=== PATIENT | male | born 1985 | race Caucasian/White ===

== ENCOUNTER 2016-04-27 10:15 | Emergency (ER) ==
[2016-04-27] MEDS ORDERED: NITROGLYCERIN SL PRN (10:21)
[2016-04-27] MEDS ORDERED: ASPIRIN PO STA (10:21)
[2016-04-27 10:37] LABS: MANUAL DIFF NEEDED? NO
[2016-04-27 10:49] LABS: BASO% 0.4 % (0.0-0.8); EOS# 0.09 X1000 (0.0-0.7); EOS% 1.7 % (0.0-10.0); HEMATOCRIT 50.5 % (42.0-52.0); HEMOGLOBIN 17.7 g/dL (14.0-18.0); LYMPH# 1.65 X1000 (1.2-3.4); LYMPH% 31.5 % (20.5-51.1); MCH 30.7 PG (27-31); MCV 87.5 FL (81-99); MONO# 0.42 X1000 (0.11-0.59); MPV 10.3 FL (7.4-10.4); NEUT% 58.4 % (42.2-75.2); PLT 273 X1000 (130-400); RBC 5.77 XMIL (4.7-6.1)
--- NOTE | 2016-04-27 10:53 | Diag Imaging Result Document ---
PROCEDURE NAME: CHEST-2 VIEWS - 04/27/2016 TWO VIEWS OF THE CHEST: FINDINGS: There is a granuloma in the right middle lobe. There is no evidence of acute cardiac or pulmonary disease. IMPRESSION: No evidence of acute disease.
[2016-04-27 10:57] LABS: INR 1.03; PROTIME 10.9 Seconds (9.2-11.7); PTT 25.7 Seconds (22.0-36.0)
--- NOTE | 2016-04-27 11:04 | PROVIDER DOCUMENTATION ---
HPI-Cardiac General - General Chief Complaint: Palpitations Stated Complaint: ELEVATED HEART RATE Time Seen by Provider: 04/27/16 10:51 Source: patient Allergies/Adverse Reactions: Patient Allergies Allergy/AdvReac Type Severity Reaction Status Date / Time No Known Allergies Allergy Verified 08/10/15 15:48 Home Medications: Home Medication List Medication Instructions Recorded Confirmed Last Taken Type Hydrocodone/APAP 7.5 mg/325 mg 1 each PO Q6H PRN PRN #12 tablet 08/10/15 Unknown Rx [[place]-7.5] Metoclopramide [Reglan] 10 mg PO Q6HR PRN #20 tablet 08/10/15 Unknown Rx Tamsulosin [Flomax] 0.4 mg PO DAILY #20 capsule 08/10/15 Unknown Rx - History of Present Illness-Cardiac Nature of Presenting Problem: Patient is a 31 y/o M that presents to the ER after having an episode of palpitations and chest discomfort with dizziness. patient reports seeing his heart rate going up to 122 bpm. Patient has been worried due to his dad having 3 vessel dz and CHF( due to agent orange). pt denies shortness of breath, fever/ chills. Location: reports: central Quality of Pain: reports: pressure Severity in ED: moderate Onset/Duration: abrupt, just prior to arrival Timing: improving Context/Activities at Onset: reports: recent emotional stress Modifying Factors: improves with: nothing Palpitation Quality: fast/pounding heart beat History of arrythmia: reports: none Recent use of:: reports: no stimulants Nitro Today/Relief: reports: no nitro taken today Aspirin Treatment Today: reports: 325 mg x 1, provided by ED Prior Chest Pain/Cardiac Workup: reports: non-cardiac Associated Symptoms: reports: dizziness. denies: heartburn, shortness of breath , swelling/lump in chest, vomiting Similar Symptoms Previously?: No Recently Seen Here or By Another Healthcare Provider: No Review of Systems - Adult - REVIEW OF SYSTEMS - ADULT Constitutional: denies: chills, fever Eyes: reports: no symptoms reported Ears, Nose, Mouth & Throat: reports: no symptoms reported Cardiovascular: reports: chest pain, palpitations. denies: syncope Respiratory: denies: cough, pleurisy, shortness of breath Gastrointestinal: denies: abdominal pain, diarrhea, nausea, vomiting Genitourinary: reports: no symptoms reported Musculoskeletal: reports: no symptoms reported Integumentary: reports: no symptoms reported Neurological: reports: dizziness/vertigo. denies: headache/migraines, numbness , syncope Psychiatric: reports: no symptoms reported Endocrine: reports: no symptoms reported Hematologic/Lymphatic: reports: no symptoms reported Allergic/Immunologic: reports: no symptoms reported All Other Systems: Reviewed and Negative Past History - Adult - PAST MEDICAL HISTORY-ADULT Review of Records: reports: Old Records Reviewed, Nursing Assessment Review, Medications Reviewed Cardiovascular: reports: hyperlipidemia Genitourinary: reports: kidney stones - PRIOR SURGERIES/PROCEDURES Surgical/Procedure History: reports: orthopedic (extremity) - IMMUNIZATION STATUS Childhood Immunizations: See Nurse Assessment Flu Vaccine: See Nurse Assessment - FAMILY HISTORY Family History: reviewed, not pertinent - SOCIAL HISTORY Smoking: non-smoker Alcohol Use Frequency: occasionally Living Situation: family Physical Exam-General - PHYSICAL EXAM-ADULT Initial Vital Signs Reviewed: Yes - CONSTITUTIONAL General Appearance: alert, anxious - EYES Eyes: PERRL/EOMI, pink conjunctivae - HEAD, EARS, NOSE, MOUTH & THROAT HENMT: normocephalic/atraumatic, moist mucous membranes, normal ENT inspection - NECK Neck: full range of motion, normal inspection. negative: lymphadenopathy - RESPIRATORY Respiratory: lungs clear, normal breath sounds, no respiratory distress, no accessory muscle use - CARDIOVASCULAR Cardiovascular: regular rate, rhythm, no edema, no murmur - GASTROINTESTINAL (ABDOMEN) Abdominal Exam: normal bowel sounds, non tender, soft - MUSCULOSKELETAL Extremity: normal range of motion, normal inspection, no pedal edema, normal capillary refill - SKIN Integumentary: normal color, warm/dry - NEUROLOGIC Neurologic: grossly normal, no motor/sensory deficits - PSYCHIATRIC Psych/Mental Status: normal thought process, oriented x 3, anxious Progress - PLAN OF CARE/RESULTS Progress/Plan/Lab Results: plan of care-cardiac work up Vital Signs Temp Pulse Resp BP Pulse Ox 04/27/16 11:16 84 21 164/87 97 04/27/16 10:18 97.8 F 99 H 20 160/86 100 No Known Allergies Allergy (Verified 08/10/15 15:48) Hydrocodone/APAP 7.5 mg/325 mg [[place]-7.5] 1 each PO Q6H PRN PRN #12 tablet Metoclopramide [Reglan] 10 mg PO Q6HR PRN #20 tablet 08/10/15 Tamsulosin [Flomax] 0.4 mg PO DAILY #20 capsule 08/10/15 Laboratory 04/27/16 04/27/16 04/27/16 10:27 10:27 10:27 WBC RBC Hgb Hct MCV MCH MCHC RDW Std Deviation Plt Count MPV Immature Gran % (Auto) Neut % (Auto) Lymph % (Auto) [place] % (Auto) Eos % (Auto) Baso % (Auto) Immature Gran # (Auto) Neut # (Auto) Lymph # (Auto) [place] # (Auto) Eos # (Auto) Baso # (Auto) PT 10.9 INR 1.03 PTT (Actin FS) 25.7 D-Dimer Sodium Potassium Chloride Carbon Dioxide Anion Gap BUN Creatinine Estimated GFR/1.73 m2 BUN/Creatinine Ratio Glucose Calculated Osmolality Calcium Magnesium Total Bilirubin AST ALT Alkaline Phosphatase Creatine Kinase Troponin T < 0.010 [id number] Pept 21 Total Protein Albumin Globulin Albumin/Globulin Ratio 04/27/16 04/27/16 04/27/16 10:27 10:27 10:27 WBC 5.23 RBC 5.77 Hgb 17.7 Hct 50.5 MCV 87.5 MCH 30.7 MCHC 35.0 RDW Std Deviation 12.6 Plt Count 273 MPV 10.3 Immature Gran % (Auto) 0.0 Neut % (Auto) 58.4 Lymph % (Auto) 31.5 [place] % (Auto) 8.0 Eos % (Auto) 1.7 Baso % (Auto) 0.4 Immature Gran # (Auto) 0.00 Neut # (Auto) 3.05 Lymph # (Auto) 1.65 [place] # (Auto) 0.42 Eos # (Auto) 0.09 Baso # (Auto) 0.02 PT INR PTT (Actin FS) D-Dimer 0.11 Sodium 140 Potassium 3.9 Chloride 100 Carbon Dioxide 25 Anion Gap 15 BUN 9 Creatinine 0.9 Estimated GFR/1.73 m2 > 60 BUN/Creatinine Ratio 10 Glucose 113 H Calculated Osmolality 279 Calcium 9.3 Magnesium 2.0 Total Bilirubin 0.72 AST 41 H ALT 80 H Alkaline Phosphatase 107 Creatine Kinase 113 Troponin T [id number]-[id number] Pept Total Protein 7.6 Albumin 4.6 Globulin 3.0 Albumin/Globulin Ratio 1.5 Orders Category Date Time Status Cardiac Monitoring DIRECTED Care 04/27/16 10:22 Active Saline Loc NOW Care 04/27/16 10:22 Active CHEST-2 VIEWS [RAD] Stat Exams 04/27/16 10:22 Draft CBC WITH ELECTRONIC DIFF [HEME] Stat Lab 04/27/16 10:27 Completed CK PROFILE [SP CHEM] Stat Lab 04/27/16 10:27 Completed COMPREHENSIVE METABOLIC PANEL [CHEM] Stat Lab 04/27/16 10:27 Completed D-DIMER [CHEM] Stat Lab 04/27/16 10:27 Completed MAGNESIUM [CHEM] Stat Lab 04/27/16 10:27 Completed PRO B-NATRIURETIC PEPTIDE Stat Lab 04/27/16 10:27 Completed PROTIME WITH INR [COAG] Stat Lab 04/27/16 10:27 Completed PTT [COAG] Stat Lab 04/27/16 10:27 Completed TROPONIN T Stat Lab 04/27/16 10:27 Completed Aspirin Med 04/27/16 10:21 Discontinued 325 mg PO STAT STA Nitroglycerin Sl [Nitroglycerin] Med 04/27/16 10:21 Discontinued 0.4 mg SL Q5M PRN PRN EKG [EKG] Stat Ther 04/27/16 10:22 Ordered pt will be d/c home f/u with for evaluation of heart and bp, pt was clinically stable. pt understood instructions/results - EKG 1 Time of EKG reading by physician:: 10:25 EKG Read and Signed by:: Cole Coleman EKG Interpretation (*Must complete 3 of following elements*): Normal Rate: 95 Rhythm: NSR [place]: normal QRS: normal NC Interval: normal ST Wave: normal - XRAY 1 XRAY Study: Chest Impression: Abnormal XRAY Interpretation: nad, right middle lobe granuloma Departure - Departure Time of Disposition Order: 12:04 DIAGNOSIS: Palpitations Disposition: HOME 01 Certified Medical Emergency: Emergent Condition: Stable Additional Instructions: ED Follow Up Instructions: You have been treated by a care provider in the Emergency Department. These instructions are being provided to you so you can have an understanding of how to care for yourself upon discharge. Upon discharge from the Emergency Department, you are responsible for making arrangements for follow-up care by a physician of your choice. Take all prescribed medications as directed. Return to the Emergency Department immediately for any new or worsening symptoms. You may call the Physician Referral phone number at [phone] to obtain a list of Physicians who are taking new patients. Referrals: Blake Todd MD [Primary Care Provider] - Call for Appoint. 1-2days Instructions: Palpitations, [id number] Attestation - Scribe Verification/Attestation Scribe:: Stan Cohen Acting as Scribe for:: Cole Coleman Scribe documention review:: This chart was documented by a scribe and accurately reflects the service the provider performed and the decisions made by the provider. Physician Attestation - Physician Attestation I, the provider, attest to the following statement:: Cole Coleman Physician documentation Attestation:: This documentation recorded by the scribe accurately reflects the service I personally performed and the decisions made by me.
[2016-04-27 11:13] LABS: AGAP 15; ALBUMIN 4.6 g/dL (3.5-5.0); ALKALINE PHOSPHATASE 107 U/L (32-122); BUN 9 mg/dL (8-22); CALCIUM 9.3 mg/dL (8.8-10.2); CHLORIDE 100 mmol/L (98-107); CK PROFILE 113 U/L (24-204); COSMO 279; GOT 41 U/L (10-34); GPT 80 U/L (10-44); POTASSIUM 3.9 mmol/L (3.5-5.1); SODIUM 140 mmol/L (136-145); TCO2 25 mmol/L (25-35); TOTAL BILIRUBIN 0.72 mg/dL (0.20-1.00); TOTAL PROTEIN 7.6 g/dL (6.3-8.3)
[2016-04-27 12:26] VITALS: BP 153/92
--- NOTE | 2016-04-28 05:44 | EKG Report ---
Test Performed on : 04/27/2016 10:25:19 AM Test Reason : CHEST PAIN Blood Pressure : / mmHG Vent. Rate : 095 BPM Atrial Rate : 095 BPM P-R Int : 124 ms QRS Dur : 084 ms QT Int : 356 ms P-R-T Axes : 047 077 032 degrees QTc Int : 447 ms Normal sinus rhythm. Normal ECG No previous ECGs available Unconfirmed Result
== END 2016-04-27 12:25 | disposition home or self-care (01) ==
LOC: ED 10:15
DX: R00.2 Palpitations (principal); R07.89 Other chest pain; R42 Dizziness and giddiness; E78.5 Hyperlipidemia, unspecified; Z87.442 Personal history of urinary calculi
CPT/HCPCS: 71020; 80053; 82550; 83735; 83880; 84484; 85025; 85379; 85610; 85730; 93005